=== PATIENT | male | born 1990 | race African-American/Black ===

== ENCOUNTER 2021-03-31 09:19 | Emergency (ER) | payer MEDICAID ==
[~2021-03-31] VITALS: Ht 170.2 cm; Wt 66.0 kg
[2021-03-31] MEDS ORDERED: VANCOMYCIN 1 G PREMIX 200 ML IV ONE (09:45)
[2021-03-31] MEDS ORDERED: VANCOMYCIN 1 G PREMIX 200 ML IV STA ×2 (09:45)
[2021-03-31] MEDS ORDERED: SODIUM CHLORIDE 0.9% 1000ML BAG (SEPSIS BOLUS) IV ONE (09:45)
[2021-03-31] MEDS ORDERED: AMPICILLIN SOD/SULBACTAM NA 3 G in SODIUM CHLORIDE 0.9% 100 ML IV STA (09:45)
[2021-03-31] MEDS ORDERED: AMPICILLIN SOD/SULBACTAM NA 3 G in SODIUM CHLORIDE 0.9% 100 ML IV SCH ×2 (09:45→16:00)
[2021-03-31 10:40] LABS: BASOPHILS % 0.5 % (0.0-2.0); EOSINOPHILS % 0.4 % (0.0-5.0); HEMATOCRIT. 42.4 % (42.0-52.0); HEMOGLOBIN. 14.4 g/dL (14.0-18.0); LYMPHOCYTES % 19.5 % (20.0-50.0); MEAN CORPUSCULAR HEMOGLOBIN 28.5 pg (28.0-32.0); MEAN CORPUSCULAR VOLUME 84.1 fL (80.0-94.0); MONOCYTES % 11.7 % (2.0-8.0); NEUTROPHILS % 67.9 % (40.0-76.0); PLATELET 230 x1000/uL (130-400); RED BLOOD CELL COUNT 5.04 mill/uL (4.7-6.1); RED CELL DISTRIBUTION WIDTH 14.4 % (11.6-14.6)
[2021-03-31] MEDS ORDERED: ONDANSETRON HCL 4MG/2ML INJ IV ONE (10:45)
[2021-03-31] MEDS ORDERED: TETANUS, DIPHTHERIA, PERTUSSIS VAC/PF 0.5ML (>7YR OLD) IM ONE (10:45)
[2021-03-31] MEDS: MORPHINE SULFATE 4 MG/ML CPJ (NOT FOR IM USE) IV ONE ×2 (10:45→11:21)
[2021-03-31 10:47] LABS: CHLORIDE 105 mEq/L (98-107); PROTHROMBIN TIME 10.4 sec (9.6-11.0)
[2021-03-31] MEDS ORDERED: DIPHENHYDRAMINE 50MG/ML VIAL IV ONE (12:30)
[2021-03-31 16:39] VITALS: BP 137/86
== END 2021-03-31 16:58 | disposition short-term general hospital (02) ==
LOC: ER 09:19
DX: S61.254A Open bite of right ring finger without damage to nail, initial encounter (principal); L03.011 Cellulitis of right finger; L02.511 Cutaneous abscess of right hand; Z20.822 Contact with and (suspected) exposure to COVID-19; Y04.1XXA Assault by human bite, initial encounter; Y93.89 Activity, other specified; Y92.89 Other specified places as the place of occurrence of the external cause
CPT/HCPCS: 36415; 73140; 80053; 83605; 84145; 85025; 85610; 85651; 86140; 87040; 87070; 87086; 87205; 87426; 90471; 90715; 96365; 96366; 96368; 96375; 99291; J0295; J1200; J2270; J2405; J3370; J7030; J7050; Z7610